=== PATIENT | male | born 2000 | race Caucasian/White ===

== ENCOUNTER 2018-01-14 12:42 | Outpatient (CLI) | payer OTHER ==
[2015-01-07 16:48] VITALS: BP 133/62
== END 2018-01-14 12:50 ==
LOC: LAB 12:42
PROVIDERS: ATTEND Nurse Practitioner Family
DX: A56.2 Chlamydial infection of genitourinary tract, unspecified (principal)
CPT/HCPCS: 36415; 86703; 86706; 86780; 86803; 87340; 87491; 87591